=== PATIENT | female | born 1940 | race Caucasian/White ===

== ENCOUNTER 2016-10-08 20:36 | Inpatient (IN) | payer OTHER, BC ==
[~2016-10-08] VITALS: Ht 167.6 cm; Wt 66.6 kg
[~2016-10-08 20:36] MED LIST: DAILY VITAMIN1 EAC4 PO; PHENERGAN-CODE120 ML PO; VICKS VAPORUB O50 GM TP
[2016-10-08 21:49] LABS: CHLORIDE 99 mEq/L (99-109); POTASSIUM 3.9 mEq/L (3.7-5.4); SODIUM 132 mEq/L (136-147)
[2016-10-08 21:50] LABS: GLUCOSE 110 mg/dL (70-99); HEMATOCRIT 21.8 % (36.0-46.0); MCH 37.3 PG (29.0-34.0); MCHC 34.9 G/DL (30.0-36.0); MCV 106.9 FL (83-99); RBC DIS.WIDTH-CV 16.8 % (11.8-14.6); RBC DIS.WIDTH-SD 65.3 % (39-53); RED BLOOD COUNT 2.04 M/uL (3.80-5.20)
[2016-10-08 21:51] LABS: WHITE BLOOD COUNT 0.4 K/uL (4.1-10.2)
[2016-10-08 21:52] LABS: ANION GAP 13 MEQ/L (2-14)
[2016-10-08 21:53] LABS: ADD MIUA? NO; BILIRUBIN NEGATIVE; BLOOD NEGATIVE; COLOR YELLOW ((YELLOW)); GLUCOSE (STRIP) NEGATIVE; KETONES 5; LEUKOCYTES NEGATIVE; NITRITE NEGATIVE; PROTEIN (STRIP) 30; SPECIFIC GRAVITY 1.015 (1.000-1.030); UCUL ADDED? NO; UROBILINOGEN 0.2 MG/DL (0.2-1.0)
[2016-10-08 21:54] LABS: GFR ESTIMATE (CALCULATED) > 59 mL/min/
[2016-10-08 21:55] LABS: UREA NITROGEN (BUN) 14 mg/dL (9-23)
[2016-10-08 22:14] LABS: INFLUENZA A VIRAL ANTIGEN NEGATIVE; INFLUENZA B VIRAL ANTIGEN NEGATIVE
[2016-10-08 22:57] LABS: ABS NEUTROPHIL COUNT 0.3; ANISOCYTOSIS 1+; EOSINOPHIL ABS CT 0; IMM.PLATELET FRACTION 1.6 (1-7); INSTRUMENT ABS NEUTROPHIL CT 0.2 K/uL; MACROCYTES 1+; MEAN PLAT.VOLUME 9.2 uM^3 (9.5-12.4); PLATELET COUNT 34 K/uL (156-360)
[2016-10-08] MEDS ORDERED: VIDAZA100 MG SC (23:17)
[2016-10-09 03:35] VITALS: BP 141/69
[2016-10-09 07:41] VITALS: BP 95/52
[2016-10-09 18:14] VITALS: BP 106/71
[2016-10-09 19:12] LABS: METH RESISTANT S AUREUS PCR NEGATIVE (NEGATIVE)
[2016-10-09 19:13] LABS: PROBE CHECK PASS; SPECIMEN PROCESSING CONTROL PASS
[2016-10-09 22:45] VITALS: BP 106/55
[2016-10-10] VITALS (11 sets, daily range): BP systolic 101–127; BP diastolic 58–68
[2016-10-10 06:24] LABS: ANION GAP 5 MEQ/L (2-14); CHLORIDE 104 MEQ/L (99-109); GFR ESTIMATE (CALCULATED) > 59 mL/min/; GLUCOSE 89 mg/dL (70-99); SAMPLE HEMOLYSIS CHECK 0; SAMPLE ICTERIC CHECK 0; SAMPLE LIPEMIA CHECK 0; SODIUM 135 MEQ/L (136-147); UREA NITROGEN (BUN) 14 mg/dL (9-23)
[2016-10-10 06:30] LABS: HEMATOCRIT 19.7 % (36.0-46.0); MCH 37.5 PG (29.0-34.0); MCV 107.1 FL (83-99); RBC DIS.WIDTH-CV 16.9 % (11.8-14.6); RBC DIS.WIDTH-SD 66.7 % (39-53); RED BLOOD COUNT 1.84 M/uL (3.80-5.20)
[2016-10-10 06:39] LABS: WHITE BLOOD COUNT 0.6 K/uL (4.1-10.2)
[2016-10-10 08:42] LABS: ABS NEUTROPHIL COUNT 0.2; ANISOCYTOSIS 1+; EOSINOPHIL ABS CT 0.1; IMM.PLATELET FRACTION 1.8 (1-7); INSTRUMENT ABS NEUTROPHIL CT 0.2 K/uL; MEAN PLAT.VOLUME 9.4 uM^3 (9.5-12.4); PLAT.SUFFICIENCY DECREASED; PLATELET COUNT 31 K/uL (156-360)
[2016-10-11 07:02] LABS: HEMATOCRIT 24.6 % (36.0-46.0); MCH 34.5 PG (29.0-34.0); RBC DIS.WIDTH-CV 19.4 % (11.8-14.6); RBC DIS.WIDTH-SD 70.4 % (39-53)
[2016-10-11 07:03] LABS: MCV 98.8 FL (83-99); RED BLOOD COUNT 2.49 M/uL (3.80-5.20); WHITE BLOOD COUNT 0.6 K/uL (4.1-10.2)
[2016-10-11 08:49] VITALS: BP 115/56
[2016-10-11 09:20] LABS: EOSINOPHIL (%) 8.6 % (0-5); EOSINOPHIL COUNT 0.1 K/uL (0-0.3); HEMATOLOGY COMMENT 1 SMEAR COMPATIBLE; IMM.PLATELET FRACTION 1.3 (1-7); INSTRUMENT ABS NEUTROPHIL CT 0.2 K/uL; LYMPHOCYTE COUNT 0.4 K/uL (1.0-2.8); MEAN PLAT.VOLUME 9.5 uM^3 (9.5-12.4); MONOCYTE (%) 1.7 % (3-12); NEUTROPHIL (%) 25.9 % (45-76); NEUTROPHIL COUNT 0.2 K/uL (1.8-6.4); PLAT.SUFFICIENCY DECREASED; PLATELET COUNT 30 K/uL (156-360)
[2016-10-11] MEDS ORDERED: LEVAQUIN750 MG PO (12:50)
== END 2016-10-11 13:30 | disposition home or self-care (01) | DRG 194 ==
LOC: EME 20:36 → EDOF 10-09 02:15 → 5EAST 10-09 02:15
PROVIDERS: Emergency Medicine; Hospitalist; Internal Medicine Infectious Disease
PROC: 30233N1 Transfusion of Nonautologous Red Blood Cells into Peripheral Vein, Percutaneous Approach (ICD-10-PCS; principal; 2016-10-10)
DX: J18.9 Pneumonia, unspecified organism (principal); D70.9 Neutropenia, unspecified; D61.818 Other pancytopenia; D46.9 Myelodysplastic syndrome, unspecified; Z96.651 Presence of right artificial knee joint; R50.81 Fever presenting with conditions classified elsewhere
CPT/HCPCS: 71010; 71250; 80048; 81003; 83605; 85009; 85025; 85027; 86850; 86900; 86901; 86920; 87040; 87502; 87641; 99281; 99284; J0692; J7030; J7050; P9016

== ENCOUNTER 2017-11-08 19:33 | Inpatient (IN) | payer OTHER, BC ==
[~2017-11-08] VITALS: Ht 167.6 cm; Wt 64.6 kg
[~2017-11-08 19:33] MED LIST changes: +ACYCLOVIR800 MG PO; +LEVAQUIN750 MG PO; +NOXAFIL IV; +VIDAZA100 MG SC
[2017-11-08 20:37] LABS: ALBUMIN 3.2 g/dL (3.2-4.8); CHLORIDE 109 mEq/L (99-109); POTASSIUM 3.8 mEq/L (3.7-5.4); SODIUM 142 mEq/L (136-147)
[2017-11-08 20:40] LABS: TOTAL PROTEIN 5.8 g/dL (6.4-8.3)
[2017-11-08 20:41] LABS: TOTAL BILIRUBIN 0.9 mg/dL (0.0-1.0)
[2017-11-08 20:43] LABS: ALKALINE PHOSPHATASE 102 IU/L (3-129); CREATININE 0.7 mg/dL (0.6-1.3); GFR ESTIMATE (CALCULATED) > 59 mL/min/
[2017-11-08 20:44] LABS: UREA NITROGEN (BUN) 25 mg/dL (9-23)
[2017-11-08 20:45] LABS: AST (GOT) 24 IU/L (2-34)
[2017-11-08 20:46] LABS: ALT (GPT) 19 IU/L (3-49)
[2017-11-08 20:59] LABS: HEMOGLOBIN 7.4 G/DL (11.9-15.5); MCH 29.6 PG (29.0-34.0); MCHC 35.2 G/DL (30.0-36.0); RBC DIS.WIDTH-CV 13.6 % (11.8-14.6)
[2017-11-08 21:05] LABS: GLUCOSE 82 mg/dL (70-99)
[2017-11-08 21:09] LABS: WHITE BLOOD COUNT 0.2 K/uL (4.1-10.2)
[2017-11-08] MEDS ORDERED: NOXAFIL100 MG PO (21:13)
[2017-11-08] MEDS ORDERED: LEVOFLOXACIN750 MG PO (21:14)
[2017-11-08] MEDS ORDERED: VICKS VAPORUB O50 GM TP (21:15)
[2017-11-08 22:04] VITALS: BP 114/50
[2017-11-08 22:23] VITALS: BP 111/50
[2017-11-08 23:09] VITALS: BP 129/52; BP 195/52
[2017-11-08 23:12] LABS: IMM.PLATELET FRACTION 0.8 (1-7)
[2017-11-08 23:13] LABS: PLATELET COUNT 8 K/uL (156-360)
[2017-11-08 23:31] VITALS: BP 119/58
[2017-11-09] VITALS (8 sets, daily range): BP systolic 113–152; BP diastolic 49–77
[2017-11-09 01:59] LABS: APPEARANCE SL.HAZY ((CLEAR)); BILIRUBIN NEGATIVE; BLOOD NEGATIVE; COLOR AMBER ((YELLOW)); GLUCOSE (STRIP) 50; KETONES 5; LEUKOCYTES NEGATIVE; NITRITE NEGATIVE; PROTEIN (STRIP) 30; SPECIFIC GRAVITY 1.034 (1.000-1.030)
[2017-11-09 03:15] LABS: EPITHELIAL CELLS RARE /HPF; MUCUS 2+ /LPF; RED BLOOD CELLS 0-5 /HPF (0-5); UCUL ADDED? NO; WHITE BLOOD CELLS 0-5 /HPF (0-5)
[2017-11-09 03:16] LABS: BACTERIA 1+ /HPF
[2017-11-09 07:19] LABS: HEMATOCRIT 21.6 % (36.0-46.0); HEMOGLOBIN 7.4 G/DL (11.9-15.5); MCH 28.9 PG (29.0-34.0); MCHC 34.3 G/DL (30.0-36.0); MCV 84.4 FL (83-99); RBC DIS.WIDTH-CV 13.3 % (11.8-14.6); RBC DIS.WIDTH-SD 41.1 % (39-53); RED BLOOD COUNT 2.56 M/uL (3.80-5.20); WHITE BLOOD COUNT 0.2 K/uL (4.1-10.2)
[2017-11-09 07:32] LABS: CHLORIDE 108 MEQ/L (99-109); CREATININE 0.6 MG/DL (0.6-1.3); GFR ESTIMATE (CALCULATED) > 59 mL/min/; GLUCOSE 101 mg/dL (70-99); IMM.PLATELET FRACTION 0.2 (1-7); PLAT.SUFFICIENCY VERY DECREASED; POTASSIUM 3.2 MEQ/L (3.7-5.4); SODIUM 141 MEQ/L (136-147); UREA NITROGEN (BUN) 21 mg/dL (9-23)
[2017-11-09 07:33] LABS: PLATELET COUNT 18 K/uL (156-360)
[2017-11-10 06:42] LABS: HEMATOCRIT 22.8 % (36.0-46.0); MCH 29.6 PG (29.0-34.0); MCHC 35.1 G/DL (30.0-36.0); MCV 84.4 FL (83-99); RBC DIS.WIDTH-CV 13.5 % (11.8-14.6); RBC DIS.WIDTH-SD 41.5 % (39-53)
[2017-11-10 06:43] LABS: WHITE BLOOD COUNT 0.2 K/uL (4.1-10.2)
[2017-11-10 06:55] LABS: ALKALINE PHOSPHATASE 84 IU/L (3-129); ALT (GPT) 17 IU/L (3-49); AST (GOT) 20 IU/L (2-34); CHLORIDE 106 MEQ/L (99-109); CREATININE 0.5 MG/DL (0.6-1.3); GFR ESTIMATE (CALCULATED) > 59 mL/min/; GLUCOSE 109 mg/dL (70-99); POTASSIUM 3.5 MEQ/L (3.7-5.4); SODIUM 137 MEQ/L (136-147); TOTAL BILIRUBIN 1.4 MG/DL (0.0-1.0); TOTAL PROTEIN 4.9 G/DL (6.4-8.3); UREA NITROGEN (BUN) 15 mg/dL (9-23)
[2017-11-10 07:03] VITALS: BP 141/64
[2017-11-10 07:13] LABS: PLATELET COUNT 10 K/uL (156-360)
[2017-11-10 07:39] LABS: MAGNESIUM 1.8 mg/dl (1.3-2.7)
[2017-11-10 10:15] LABS: ABS NEUTROPHIL COUNT 0; ANISOCYTOSIS 1+; EOSINOPHIL ABS CT 0; IMM.PLATELET FRACTION 1.2 (1-7); MICROCYTOSIS 1+; PLAT.SUFFICIENCY VERY DECREASED
[2017-11-10 11:30] VITALS: BP 136/67
== END 2017-11-10 12:32 | disposition home health service (06) | DRG 810 ==
LOC: EME 19:33 → 2EAST 21:28 → EDOF 21:28 → ENRESERV 21:29 → 2EAST 11-09 00:59 → ENPENDDIS 11-10 12:19 → 2EAST 11-10 12:32
PROVIDERS: Emergency Medicine; Hospitalist
DX: D70.9 Neutropenia, unspecified (principal); D46.9 Myelodysplastic syndrome, unspecified; D69.6 Thrombocytopenia, unspecified; E87.6 Hypokalemia; R50.81 Fever presenting with conditions classified elsewhere; I87.8 Other specified disorders of veins; L27.0 Generalized skin eruption due to drugs and medicaments taken internally; T36.7X5A Adverse effect of antifungal antibiotics, systemically used, initial encounter; Z80.6 Family history of leukemia; Z82.49 Family history of ischemic heart disease and other diseases of the circulatory system; Z83.3 Family history of diabetes mellitus; Z85.3 Personal history of malignant neoplasm of breast; Z90.10 Acquired absence of unspecified breast and nipple; Z87.891 Personal history of nicotine dependence
CPT/HCPCS: 36415; 71046; 80048; 80053; 81003; 83605; 83735; 85009; 85025; 85027; 86850; 86900; 86901; 86920; 87040; 87086; 87641; 93970; 96365; 99281; 99285; J2185; J3370; J3480; J7050; J7120; P9037; P9040

== ENCOUNTER 2018-02-04 16:49 | Inpatient (IN) | payer OTHER, BC ==
[~2018-02-04] VITALS: Ht 167.6 cm; Wt 68.8 kg
[~2018-02-04 16:49] MED LIST changes: +DIFLUCAN200 MG PO; +LEVOFLOXACIN750 MG PO; +NOXAFIL100 MG PO
[2018-02-04 17:30] LABS: INTER. NORMALIZED RATIO 1.7
[2018-02-04 17:33] LABS: HEMATOCRIT 25.6 % (36.0-46.0); HEMOGLOBIN 9.1 G/DL (11.9-15.5); MCH 29.9 PG (29.0-34.0); MCHC 35.5 G/DL (30.0-36.0); MCV 84.2 FL (83-99); RBC DIS.WIDTH-CV 12.8 % (11.8-14.6); RBC DIS.WIDTH-SD 39.2 % (39-53); RED BLOOD COUNT 3.04 M/uL (3.80-5.20)
[2018-02-04 17:35] LABS: ALBUMIN 3.4 g/dL (3.2-4.8); CHLORIDE 101 mEq/L (99-109); POTASSIUM 4.3 mEq/L (3.7-5.4); SODIUM 133 mEq/L (136-147); WHITE BLOOD COUNT 0.1 K/uL (4.1-10.2)
[2018-02-04 17:38] LABS: GLUCOSE 101 mg/dL (70-99); TOTAL PROTEIN 6.2 g/dL (6.4-8.3)
[2018-02-04 17:39] LABS: TOTAL BILIRUBIN 1.7 mg/dL (0.0-1.0)
[2018-02-04 17:41] LABS: ALKALINE PHOSPHATASE 95 IU/L (3-129); CREATININE 0.7 mg/dL (0.6-1.3); GFR ESTIMATE (CALCULATED) > 59 mL/min/
[2018-02-04 17:42] LABS: UREA NITROGEN (BUN) 17 mg/dL (9-23)
[2018-02-04 17:43] LABS: AST (GOT) 25 IU/L (2-34); DIRECT BILIRUBIN 0.7 mg/dL (0.0-0.3)
[2018-02-04 17:44] LABS: ALT (GPT) 19 IU/L (3-49)
[2018-02-04 17:45] LABS: TROP-I INTERPRETATION NEGATIVE; TROPONIN-I 0.01 ng/mL (0.0-0.30)
[2018-02-04] MEDS ORDERED: NYSTATIN100000 UN1 PO (18:22)
[2018-02-04 19:33] LABS: ABS NEUTROPHIL COUNT 0; ATYPICAL LYMPHOCYTE 8.2 %; BAND NEUTROPHILS 2.7 % (0-8.0); EOSINOPHIL ABS CT 0; EOSINOPHILS 1.3 % (0-5.0); IMM.PLATELET FRACTION 2.9 (1-7); LYMPHOCYTES 68.8 % (15.0-45.0); MONOCYTES 10.8 % (0-9.0); MYELOCYTES 1.4 %; OTHER 6.8; SMUDGE CELLS 5.5
[2018-02-04 19:49] LABS: PLATELET COUNT 8 K/uL (156-360)
[2018-02-04 20:33] LABS: APPEARANCE CLEAR ((CLEAR)); BILIRUBIN NEGATIVE; BLOOD NEGATIVE; COLOR YELLOW ((YELLOW)); GLUCOSE (STRIP) NEGATIVE; KETONES 5; LEUKOCYTES NEGATIVE; NITRITE NEGATIVE; PROTEIN (STRIP) 100; SPECIFIC GRAVITY 1.027 (1.000-1.030)
[2018-02-04 20:36] LABS: BACTERIA RARE /HPF; EPITHELIAL CELLS RARE /HPF; MUCUS TRACE /LPF; UCUL ADDED? NO; WHITE BLOOD CELLS 0-5 /HPF (0-5)
[2018-02-04 23:41] VITALS: BP 122/49
[2018-02-04 23:42] VITALS: BP 122/49
[2018-02-05] VITALS (16 sets, daily range): BP systolic 64–138; BP diastolic 46–63
[2018-02-05 05:57] LABS: HEMATOCRIT 20.6 % (36.0-46.0); HEMOGLOBIN 7.3 G/DL (11.9-15.5); MCH 29.7 PG (29.0-34.0); MCHC 35.4 G/DL (30.0-36.0); MCV 83.7 FL (83-99); RBC DIS.WIDTH-SD 39.4 % (39-53); RED BLOOD COUNT 2.46 M/uL (3.80-5.20)
[2018-02-05 05:59] LABS: WHITE BLOOD COUNT 0.1 K/uL (4.1-10.2)
[2018-02-05 06:10] LABS: ALBUMIN 2.6 G/DL (3.2-4.8); ALKALINE PHOSPHATASE 72 IU/L (3-129); ALT (GPT) 11 IU/L (3-49); CHLORIDE 104 MEQ/L (99-109); CREATININE 0.5 MG/DL (0.6-1.3); GFR ESTIMATE (CALCULATED) > 59 mL/min/; GLUCOSE 107 mg/dL (70-99); POTASSIUM 3.5 MEQ/L (3.7-5.4); SODIUM 134 MEQ/L (136-147); UREA NITROGEN (BUN) 14 mg/dL (9-23)
[2018-02-05 06:11] LABS: AST (GOT) 12 IU/L (2-34); TOTAL PROTEIN 5.2 G/DL (6.4-8.3)
[2018-02-05 06:36] LABS: IMM.PLATELET FRACTION 1.5 (1-7); PLAT.SUFFICIENCY VERY DECREASED
[2018-02-05 06:41] LABS: PLATELET COUNT 5 K/uL (156-360)
[2018-02-05 19:37] LABS: HEMATOCRIT 19.3 % (36.0-46.0); HEMOGLOBIN 6.9 G/DL (11.9-15.5); MCH 29.9 PG (29.0-34.0); MCHC 35.8 G/DL (30.0-36.0); MCV 83.5 FL (83-99); RBC DIS.WIDTH-CV 13.2 % (11.8-14.6); RBC DIS.WIDTH-SD 40.4 % (39-53); RED BLOOD COUNT 2.31 M/uL (3.80-5.20); WHITE BLOOD COUNT 0.1 K/uL (4.1-10.2)
[2018-02-05 20:15] LABS: HEMATOLOGY COMMENT 1 SN; IMM.PLATELET FRACTION 1.1 (1-7); PLAT.SUFFICIENCY VERY DECREASED
[2018-02-05 21:32] LABS: PLATELET COUNT 32 K/uL (156-360)
[2018-02-06] VITALS (10 sets, daily range): BP systolic 116–149; BP diastolic 58–64
[2018-02-06 11:19] LABS: HEMATOCRIT 23.1 % (36.0-46.0); HEMOGLOBIN 8.1 G/DL (11.9-15.5); MCH 29.6 PG (29.0-34.0); MCHC 35.1 G/DL (30.0-36.0); MCV 84.3 FL (83-99); RBC DIS.WIDTH-CV 13.5 % (11.8-14.6); RBC DIS.WIDTH-SD 41.1 % (39-53); RED BLOOD COUNT 2.74 M/uL (3.80-5.20)
[2018-02-06 11:22] LABS: WHITE BLOOD COUNT 0.1 K/uL (4.1-10.2)
[2018-02-06 11:33] LABS: CHLORIDE 103 MEQ/L (99-109); CREATININE 0.4 MG/DL (0.6-1.3); GFR ESTIMATE (CALCULATED) > 59 mL/min/; GLUCOSE 129 mg/dL (70-99); POTASSIUM 3.5 MEQ/L (3.7-5.4); SODIUM 133 MEQ/L (136-147); UREA NITROGEN (BUN) 9 mg/dL (9-23)
[2018-02-06 12:31] LABS: PLATELET COUNT 46 K/uL (156-360)
[2018-02-07] VITALS (12 sets, daily range): BP systolic 97–154; BP diastolic 53–72
[2018-02-07 06:19] LABS: HEMATOCRIT 20.6 % (36.0-46.0); HEMOGLOBIN 7.3 G/DL (11.9-15.5); MCH 29.4 PG (29.0-34.0); MCHC 35.4 G/DL (30.0-36.0); MCV 83.1 FL (83-99); RBC DIS.WIDTH-CV 13.7 % (11.8-14.6); RBC DIS.WIDTH-SD 41.7 % (39-53); RED BLOOD COUNT 2.48 M/uL (3.80-5.20)
[2018-02-07 06:22] LABS: WHITE BLOOD COUNT 0.1 K/uL (4.1-10.2)
[2018-02-07 06:54] LABS: ALBUMIN 2.5 G/DL (3.2-4.8); ALKALINE PHOSPHATASE 96 IU/L (3-129); AST (GOT) 16 IU/L (2-34); CHLORIDE 106 MEQ/L (99-109); CREATININE 0.5 MG/DL (0.6-1.3); GFR ESTIMATE (CALCULATED) > 59 mL/min/; GLUCOSE 99 mg/dL (70-99); POTASSIUM 4.2 MEQ/L (3.7-5.4); SODIUM 134 MEQ/L (136-147); TOTAL PROTEIN 5.1 G/DL (6.4-8.3); UREA NITROGEN (BUN) 9 mg/dL (9-23)
[2018-02-07 07:12] LABS: ALT (GPT) 21 IU/L (3-49); TOTAL BILIRUBIN 1.3 MG/DL (0.0-1.0)
[2018-02-07 08:27] LABS: ABS NEUTROPHIL COUNT 0; ANISOCYTOSIS 1+; EOSINOPHIL ABS CT 0; IMM.PLATELET FRACTION 0.7 (1-7); OVALOCYTES 2+; PLAT.SUFFICIENCY DECREASED; PLATELET COUNT 36 K/uL (156-360); POLYCHROMASIA 1+; TOXIC GRANULATION 1+
[2018-02-08 04:51] LABS: APPEARANCE CLEAR ((CLEAR)); BILIRUBIN NEGATIVE; BLOOD SMALL; COLOR STRAW ((YELLOW)); GLUCOSE (STRIP) NEGATIVE; KETONES NEGATIVE; LEUKOCYTES NEGATIVE; NITRITE NEGATIVE; PROTEIN (STRIP) NEGATIVE; SPECIFIC GRAVITY 1.005 (1.000-1.030); UROBILINOGEN 0.2 MG/DL (0.2-1.0)
[2018-02-08 04:52] LABS: BACTERIA NONE SEEN /HPF; EPITHELIAL CELLS NONE SEEN /HPF; MUCUS NONE SEEN /LPF; RED BLOOD CELLS 0-5 /HPF (0-5); UCUL ADDED? NO; WHITE BLOOD CELLS 0-5 /HPF (0-5)
[2018-02-08 07:10] VITALS: BP 133/77
[2018-02-08 07:13] LABS: HEMATOCRIT 26.7 % (36.0-46.0); IMM.PLATELET FRACTION 0.6 (1-7); MCH 29.8 PG (29.0-34.0); MCV 82.9 FL (83-99); PLAT.SUFFICIENCY VERY DECREASED; RBC DIS.WIDTH-CV 13.6 % (11.8-14.6); RBC DIS.WIDTH-SD 41.3 % (39-53)
[2018-02-08 07:15] LABS: HEMOGLOBIN 9.6 G/DL (11.9-15.5); PLATELET COUNT 21 K/uL (156-360); RED BLOOD COUNT 3.22 M/uL (3.80-5.20); WHITE BLOOD COUNT 0.1 K/uL (4.1-10.2)
[2018-02-08 16:41] VITALS: BP 126/59
[2018-02-08 23:43] VITALS: BP 116/61
[2018-02-09 07:24] VITALS: BP 117/58
[2018-02-09 11:23] LABS: HEMATOCRIT 26.8 % (36.0-46.0); HEMOGLOBIN 9.5 G/DL (11.9-15.5); MCH 29.9 PG (29.0-34.0); MCHC 35.4 G/DL (30.0-36.0); MCV 84.3 FL (83-99); RBC DIS.WIDTH-SD 43.6 % (39-53); RED BLOOD COUNT 3.18 M/uL (3.80-5.20)
[2018-02-09 11:48] LABS: WHITE BLOOD COUNT 0.1 K/uL (4.1-10.2)
[2018-02-09 11:49] LABS: PLAT.SUFFICIENCY VERY DECREASED; PLATELET COUNT 10 K/uL (156-360)
[2018-02-09 16:23] VITALS: BP 129/62
[2018-02-09 23:43] VITALS: BP 139/64
[2018-02-10 09:10] VITALS: BP 140/68
[2018-02-10] MEDS ORDERED: MORPHINE CON20 MG/M1 PO (11:34)
[2018-02-10] MEDS ORDERED: TRANSDERM-SCOP1 EACH TD (11:34)
[2018-02-10] MEDS ORDERED: ATIVAN INTE2 MG/1 ML PO (11:34)
[2018-02-10 12:45] VITALS: BP 137/62
[2018-02-10] MEDS ORDERED: ACID CONTROLLER20 MG PO (12:53)
== END 2018-02-10 15:24 | disposition hospice, home (50) | DRG 809 ==
LOC: EME 16:49 → EDOF 20:49 → 4EAST 20:49 → 5EAST 20:49 → ENRESERV 20:55 → EDOF 21:29 → ENRESERV 21:30 → 4EAST 23:14 → ENRESERV 02-06 09:44 → 5EAST 02-06 13:24
PROVIDERS: Emergency Medicine; Hospitalist; Internal Medicine; Internal Medicine Medical Oncology
PROC: 30233N1 Transfusion of Nonautologous Red Blood Cells into Peripheral Vein, Percutaneous Approach (ICD-10-PCS; principal; 2018-02-05)
DX: D70.9 Neutropenia, unspecified (principal); Z66 Do not resuscitate; Z51.5 Encounter for palliative care; D46.9 Myelodysplastic syndrome, unspecified; B37.0 Candidal stomatitis; E87.6 Hypokalemia; R50.81 Fever presenting with conditions classified elsewhere; C44.329 Squamous cell carcinoma of skin of other parts of face; L03.211 Cellulitis of face; C95.90 Leukemia, unspecified not having achieved remission; Y63.3 Inadvertent exposure of patient to radiation during medical care; Z96.651 Presence of right artificial knee joint; Z85.3 Personal history of malignant neoplasm of breast; Z83.3 Family history of diabetes mellitus; Z90.11 Acquired absence of right breast and nipple; Z87.891 Personal history of nicotine dependence; Z82.49 Family history of ischemic heart disease and other diseases of the circulatory system; Z74.01 Bed confinement status; Y92.89 Other specified places as the place of occurrence of the external cause
CPT/HCPCS: 36415; 71045; 77336; 77412; 80048; 80053; 80076; 80202; 81003; 83605; 84484; 85025; 85027; 85610; 85730; 86078; 86850; 86900; 86901; 86920; 87040; 99281; 99285; A6260; J1940; J2543; J3370; J3480; J7030; J7050; P9037; P9040; Q0167